=== PATIENT | female | born 1990 | race Caucasian/White ===

== ENCOUNTER 2024-11-28 11:00 | Emergency (ER) | payer MEDICAID, SELFPAY ==
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
[2024-11-28 11:23] VITALS: BP 122/82; PULSE 102; RESP 19; TEMP 36.8; O2SAT 99; BMI 30.4
[2024-11-28] MEDS: IBUPROFEN TAB 600 MG TABLET PO (11:25)
--- NOTE | 2024-11-28 11:30 | PC.NURSE ---
BRANDO SMITH CONTACTED, WILL SEND OFFICER WHEN AVAILABLE.
== END 2024-11-28 12:49 | disposition home or self-care (01) ==
PROVIDERS: Emergency Provider Emergency Medicine
DX: S16.1XXA Strain of muscle, fascia and tendon at neck level, initial encounter (principal); V89.2XXA Person injured in unspecified motor-vehicle accident, traffic, initial encounter
CPT/HCPCS: 72040; 99283; A9270

== ENCOUNTER 2025-05-16 16:01 | Emergency (ER) | payer MEDICAID, SELFPAY ==
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
[2025-05-16 16:28] VITALS: BP 127/83; PULSE 94; RESP 17; TEMP 36.9; O2SAT 98; BMI 26.2
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
== END 2025-05-16 18:17 | disposition home or self-care (01) ==
PROVIDERS: Emergency Provider Family Medicine
DX: S13.4XXA Sprain of ligaments of cervical spine, initial encounter (principal); V49.9XXA Car occupant (driver) (passenger) injured in unspecified traffic accident, initial encounter; S09.90XA Unspecified injury of head, initial encounter
CPT/HCPCS: 70450; 72125; 99283

== ENCOUNTER → 2025-05-22 | Outpatient (CLI) | payer BC, SELFPAY ==
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
== END | disposition home or self-care (01) ==
LOC: SMRI 05-23 07:18
PROVIDERS: PCP Nurse Practitioner Family; Referring Provider Nurse Practitioner Family; Visit Provider Nurse Practitioner Family
DX: M25.78 Osteophyte, vertebrae (principal); M50.222 Other cervical disc displacement at C5-C6 level
CPT/HCPCS: 72141